=== PATIENT | male | born 1990 | race Caucasian/White ===

== ENCOUNTER 2024-11-13 16:03 | Emergency (ER) | payer OTHER ==
[~2024-11-13] VITALS: Ht 185.4 cm; Wt 113.4 kg
[2024-11-13] MEDS ORDERED: PREG300C PO (17:54)
[2024-11-13 18:14] VITALS: BP 158/78; TEMP 98.6; O2SAT 97
== END 2024-11-13 18:14 | disposition home or self-care (01) ==
LOC: ER 16:23
DX: G62.9 Polyneuropathy, unspecified (principal); F17.200 Nicotine dependence, unspecified, uncomplicated; Z79.899 Other long term (current) drug therapy
CPT/HCPCS: A4606; A4663